=== PATIENT | male | born 1960 | race Caucasian/White ===

== ENCOUNTER → 2020-08-01 | Outpatient (CLI) | payer OTHER ==
--- NOTE | 2020-08-01 16:55 | RAD ---
EXAM: Lumbar spine, 3 views. HISTORY: Pain. COMPARISON: None. FINDINGS: 3 views of the lumbar spine are obtained. There is mild lumbar dextroscoliosis centered at L4. There is grade 1 anterolisthesis of L4 on L5 and L5 on S1. There is multilevel endplate remodelin g and there is left lateral endplate osteophytosis at L4-L5. There is facet arthropathy at the mid lo wer lumbar levels. IMPRESSION: 1. Multilevel degenerative change, described above. 2. Grade 1 anterolisthesis at L4-L5 and L5-S1. Electronically signed by: Sarah Barroso MD (08/01/2020 4:53 PM) [id number]
--- NOTE | 2020-08-01 17:04 | RAD ---
Right ankle 2 views INDICATION: Right ankle pain when weightbearing COMPARISON: None. FINDINGS: Lateral plate and screw construct fixation of the lateral malleolus fractures identified with good he aling to prior fracture and no evidence of hardware failure or migration. No erosive changes or other aggressive appearing bony lesions. Osseous structures are in good alignment. There is an ossific density lateral to the talus, just dist al to the distal fibula that could represent a secondary ossification center or a nonunited fracture fragment. Osteophytic spurring at the tibiotalar joint with anterior joint space narrowing is seen. No osteocho ndral lesion is seen by x-ray. There is mild soft tissue swelling around the ankle anteriorly and laterally. IMPRESSION: 1. Healed lateral malleolar fracture status post plate and screw construct fixation with mild soft ti ssue swelling around the ankle and ossific densities distal to the fibula that could represent old, n onunited fracture fragment versus unfused secondary ossification center. 2. There are in addition, degenerative changes of the tibiotalar joint. No acute osseous abnormality noted. Electronically signed by: Osman Brand MD (08/01/2020 5:02 PM) [id number]
== END ==
LOC: RAD 13:17
PROVIDERS: ATTEND Surgery
DX: M47.816 Spondylosis without myelopathy or radiculopathy, lumbar region (principal); M43.16 Spondylolisthesis, lumbar region; M25.571 Pain in right ankle and joints of right foot
CPT/HCPCS: 72100; 73600